=== PATIENT | female | born 1995 | race Caucasian/White ===

== ENCOUNTER 2022-03-06 20:12 | Emergency (ER) | payer OTHER ==
[~2022-03-06] VITALS: Ht 154.9 cm; Wt 51.8 kg
[2022-03-06 20:18] VITALS: TEMP 98.2
[2022-03-06 21:45] VITALS: BP 144/78; PULSE 76
== END 2022-03-06 21:45 | disposition home or self-care (01) ==
LOC: COL.ER 20:12
DX: S93.401A Sprain of unspecified ligament of right ankle, initial encounter (principal); Z28.310 Unvaccinated for COVID-19; X50.1XXA Overexertion from prolonged static or awkward postures, initial encounter